=== PATIENT | female | born 1950 | race Caucasian/White ===

== ENCOUNTER 2017-05-16 22:36 | Emergency (ER) | payer MEDICARE, OTHER ==
[2017-05-16] MEDS ORDERED: LORazepam 1 MG TAB PO STA (23:52)
--- NOTE | 2017-05-16 23:55 | ED ---
General Adult HPI - General Chief complaint: Dizziness Stated complaint: Dizzy Time Seen by Provider: 05/16/17 23:20 Source: patient, RN notes reviewed, old records reviewed Mode of arrival: ambulatory Limitations: no limitations - History of Present Illness Initial comments: This is a 66-year-old female presents emergency Department chief complaint of severe anxiety. Patient states that she just doesn't feel right, since her son has been taken to a acute rehab facility. 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 Patient states that she does not like being home alone. She does come to the emergency department with her ex spouse. Patient states that she has no physical complaints, she reports that she feels chronically dizzy but that is no acute changes. She states that she has no chest pain, shortness breath, abdominal pain, nausea, vomiting. Patient reports that she is just extremely anxious and is looking for help for her anxiety. - Related Data Home Medications Medication Instructions Recorded Confirmed Atenolol [Tenormin] 50 mg PO DAILY 05/16/17 05/16/17 Ergocalciferol (Vitamin D2) 50,000 unit PO Q7D 05/16/17 05/16/17 [Vitamin D2] Ibuprofen [Motrin] 600 mg PO BID 05/16/17 05/16/17 Potassium Chloride ER [K-Dur 10] 20 meq PO BID 05/16/17 05/16/17 Simethicone [Gas-X] 125 mg PO QID PRN 05/16/17 05/16/17 Spironolact/Hydrochlorothiazid 1 tab PO DAILY 05/16/17 05/16/17 [Aldactazide 25-25 MG] Thioridazine HCl [Mellaril] 25 mg PO TID 05/16/17 05/16/17 Warfarin [Coumadin] 2.5 mg PO SUTUWETHFRSA 05/16/17 05/16/17 Previous Rx's Medication Instructions Recorded LORazepam [Ativan] 0.5 mg PO BID #8 tab 05/17/17 Allergies Allergy/AdvReac Type Severity Reaction Status Date / Time sulfamethoxazole AdvReac Rash/Hives Verified 05/16/17 23:34 [From Bactrim] trimethoprim [From Bactrim] AdvReac Rash/Hives Verified 05/16/17 23:34 Review of Systems ROS Statement: Those systems with pertinent positive or pertinent negative responses have been documented in the HPI. ROS Other: All systems not noted in ROS Statement are negative. Past Medical History Past Medical History: Deep Vein Thrombosis (DVT), Hypertension History of Any Multi-Drug Resistant Organisms: None Reported Past Surgical History: No Surgical Hx Reported Past Psychological History: Schizophrenia Smoking Status: Current every day smoker Past Alcohol Use History: None Reported Past Drug Use History: None Reported General Exam - General Exam Comments Initial Comments: Well-appearing 66-year-old female. No distress. Limitations: no limitations General appearance: alert, in no apparent distress Head exam: Present: atraumatic, normocephalic, normal inspection Eye exam: Present: normal appearance, PERRL, EOMI. Absent: scleral icterus, conjunctival injection, periorbital swelling ENT exam: Present: normal exam, mucous membranes moist Neck exam: Present: normal inspection. Absent: tenderness, meningismus, lymphadenopathy Respiratory exam: Present: normal lung sounds bilaterally. Absent: respiratory distress, wheezes, rales, rhonchi, stridor Cardiovascular Exam: Present: regular rate, normal rhythm, normal heart sounds. Absent: systolic murmur, diastolic murmur, rubs, gallop, clicks GI/Abdominal exam: Present: soft, normal bowel sounds. Absent: distended, tenderness, guarding, rebound, rigid Back exam: Present: normal inspection Neurological exam: Present: alert, oriented X3, CN II-XII intact Psychiatric exam: Present: normal affect, normal mood Skin exam: Present: warm, dry, intact, normal color. Absent: rash Course Vital Signs 05/16/17 05/17/17 22:55 00:45 Temperature 98.4 F 98 F Pulse Rate 85 67 Respiratory 18 18 Rate Blood Pressure 106/59 137/82 O2 Sat by Pulse 95 95 Oximetry Medical Decision Making - Medical Decision Making This is a 66-year-old female chief complaint of severe anxiety and not being able to sleep. Patient denies any chest pain or physical complaints. She reports she's been increasingly anxious since her son has been put in a rehab facility. Patient states that she has some chronic disease but this is unchanged, she does not want to be evaluated for this dizziness. At this time patient which was continues to complain of anxiety. Patient was given 1 mg of Ativan by mouth. She was reevaluated does feel somewhat better at this time. Patient was discharged with 8.5 mg of Ativan dispensed #8, with various all dose , discuss chilling needs to take that with severe anxiety or panic attacks. Again I discussed with patient that she could evaluate her for dizziness but she does not want to do that at this time. I discussed the since she does have no physical complaints is acceptable. Patient will be discharged at this time with close follow-up with her primary care provider. Return parameters were discussed. 05/17/17 00:20 EKG shows sinus rhythm. Evidence of left anterior fascicular block. Ventricular rate of 74 bpm. AL interval 08/15/2005. Curious duration 80 ms. QT QTC [address] elevation or T-wave inversion. No evidence of acute or ventricular arrhythmias. Disposition Clinical Impression: Anxiety Disposition: HOME SELF-CARE Condition: Good Instructions: Separation Anxiety Disorder (ED), Anxiety (ED) Additional Instructions: Advised to follow-up with her primary care provider. Only use the medicine as directed for severe episodes of anxiety. Return to emergency department if any alarming signs or symptoms occur. Prescriptions: LORazepam [Ativan] 0.5 mg PO BID #8 tab Referrals: Teresa Ren MD [Primary Care Provider] - 1-2 days Time of Disposition: 00:33
[2017-05-17 00:09] VITALS: RESP 18
[2017-05-17 00:46] VITALS: BP 137/82; PULSE 67; TEMP 98
== END 2017-05-17 00:45 | disposition home or self-care (01) ==
LOC: EC 22:36
DX: F41.9 Anxiety disorder, unspecified (principal); I44.4 Left anterior fascicular block; I10 Essential (primary) hypertension; F20.9 Schizophrenia, unspecified; F17.200 Nicotine dependence, unspecified, uncomplicated; Z86.718 Personal history of other venous thrombosis and embolism; Z79.1 Long term (current) use of non-steroidal anti-inflammatories (NSAID); Z79.01 Long term (current) use of anticoagulants; Z79.899 Other long term (current) drug therapy
CPT/HCPCS: 93005; 99284

== ENCOUNTER → 2024-06-07 | Outpatient (CLI) | payer MEDICARE, OTHER ==
--- NOTE | 2024-06-08 20:12 | US ---
EXAMINATION TYPE: US kidneys/renal and bladder DATE OF EXAM: 06/07/2024 COMPARISON: NONE CLINICAL INDICATION: Female, 73 years old with history of R10.9 UNSPECIFIED ABDOMINAL PAIN; Bilateral flank pain. Patient states she has a hard time drinking water due to water pills. TECHNIQUE: Grayscale imaging of the bilateral kidneys and urinary bladder: FINDINGS: EXAM MEASUREMENTS: Right Kidney: 9.7 x 4.7 x 4.1 cm Left Kidney: 9.5 x 4.3 x 4.7 cm Right Kidney: Inferior pole obscured by bowel gas and not well seen Left Kidney: No hydronephrosis or masses seen Bladder: Not well visualized Bilateral Jets not seen Incidental findings: 1: echogenic focus in GB= 1.7 cm 2: Possible thickened endometrium vs fibroid vs other etiology There is no evidence for hydronephrosis at this point in time. No nephrolithiasis is seen. No keshia s are identified. The urinary bladder is anechoic. IMPRESSION: Adherent gallstone versus polyp within the gallbladder. [facility], , 06/08/2024 8:10 PM
== END | disposition home or self-care (01) ==
LOC: RADUSWWP 16:05
PROVIDERS: ATTEND Internal Medicine
DX: R10.9 Unspecified abdominal pain (principal)
CPT/HCPCS: 76770